=== PATIENT | male | born 1965 | race Caucasian/White ===

== ENCOUNTER 2019-08-04 18:18 | Observation (INO) | payer BC ==
--- NOTE | 2019-08-04 18:37 | PDOC ---
Rapid Medical Evaluation Medical Evaluation: I have performed a brief in-person evaluation of this patient. The patient presents with a chief complaint of: c/o pressure along whole chest x 4 days; denies sob, vomiting, leg swelling, fever, URI sxs; father and brother had [place]; has hx of HTN, hypothyroid, HLD Pertinent physical exam findings: In NAD I have ordered the following: labs, ekg, cxr The patient will proceed to the ED for further evaluation. 08/04/19 18:35
[2019-08-04 18:38] VITALS: BMI 34.8
--- NOTE | 2019-08-04 20:24 | PDOC ---
Attending Attestation - Resident Resident Name: BrennenrashmiPerryMarlon - ED Attending Attestation I have performed the following: I have examined & evaluated the patient, The case was reviewed & discussed with the resident, I agree w/resident's findings & plan - HPI HPI: 08/05/19 03:03 see resident hpi - Physicial Exam PE: 08/05/19 03:03 agree with resident exam - Medical Decision Making 08/05/19 03:03 53-year-old male with chest pain and multiple risk factors EKG shows no acute abnormalities Plan for observation to hospitalist service
--- NOTE | 2019-08-04 20:24 | PDOC ---
History of Present Illness - General Chief Complaint: Chest Pain Stated Complaint: CHEST DISCOMFORT Time Seen by Provider: 08/04/19 18:35 - History of Present Illness Initial Comments: The pt is a 53M w/ a history of HTN, HLD, and hypothyroidism who presents for evaluation of chest pain. The pain was a left sided 'pinch' that lasted for seconds, was non-radiating, non-exertional, and not associated with any GARCIA, vision changes, SOB, or sensation changes. The pt has had this happen several times in the past. He reports a family history of father and brother with [place] at 50. Denies fevers/chills, N/V/C/D, dysuria, hematuria, or changes in sensation. 08/04/19 20:33 Past History - Past Medical History Allergies/Adverse Reactions: Allergies Allergy/AdvReac Type Severity Reaction Status Date / Time No Known Allergies Allergy Verified 08/04/19 18:39 Home Medications: Ambulatory Orders Amlodipine Besylate 5 mg PO DAILY 08/04/19 Benazepril HCl 40 mg PO DAILY 08/04/19 Levothyroxine Sodium 137 mg PO DAILY 08/04/19 Simvastatin 20 mg PO DAILY 08/04/19 COPD: No HTN: Yes Hypercholesterolemia: Yes Thyroid Disease: Yes - Psycho Social/Smoking Cessation Hx Smoking History: Former smoker Have you smoked in the past 12 months: No If you are a former smoker, when did you quit?: 9 YEARS AGO Information on smoking cessation initiated: No Hx Alcohol Use: No Drug/Substance Use Hx: No Review of Systems - Review of Systems Able to Perform ROS?: Yes Comments:: GENERAL/CONSTITUTIONAL: No fever or chills. No weakness HEAD, EYES, EARS, NOSE AND THROAT: No change in vision. No change in hearing. No sore throat CARDIOVASCULAR: No shortness of breath RESPIRATORY: Denies cough, hemoptysis GASTROINTESTINAL: No nausea, vomiting, diarrhea or constipation GENITOURINARY: No dysuria, frequency, or change in urination MUSCULOSKELETAL: No joint or muscle swelling or pain. No neck or back pain SKIN: No rash NEUROLOGIC: No headache, vertigo, loss of consciousness, or change in strength/ sensation ENDOCRINE: No increased thirst. No abnormal weight change HEMATOLOGIC/LYMPHATIC: No anemia, easy bleeding, or history of blood clots ALLERGIC/IMMUNOLOGIC: No hives or skin allergy 08/04/19 20:24 Is the patient limited Luxembourgish proficient: No *Physical Exam - Vital Signs Last Vital Signs Temp Pulse Resp BP Pulse Ox 98.8 F 108 H 18 157/98 94 L 08/04/19 18:33 08/04/19 18:33 08/04/19 18:33 08/04/19 18:33 08/04/19 18:33 - Physical Exam GENERAL: Awake, alert, and oriented to person/place/time, in no acute distress HEAD: No signs of trauma, normocephalic, atraumatic EYES: PERRLA, EOMI, sclera anicteric, conjunctiva clear ENT: Hearing grossly normal, nares patent, oropharynx clear without exudates. Moist mucosa LUNGS: No distress, speaks in full sentences, clear to auscultation bilaterally HEART: Regular rate and rhythm, normal S1 and S2, no murmurs appreciated, peripheral pulses normal and equal bilaterally ABDOMEN: Soft, nontender, normoactive bowel sounds. No guarding, no rebound EXTREMITIES: Normal inspection, Normal range of motion, no edema. No clubbing or cyanosis NEUROLOGICAL: Cranial nerves II through XII grossly intact. Normal speech, normal gait, no focal sensorimotor deficits SKIN: Warm, Dry 08/04/19 20:24 Heart Score/ECG Review - History History: Slightly suspicious - Electrocardiogram EKG: Non specific repolarization disturbance - Age Age: 45-65 - Risk Factors Risk Factors Heart Score: Yes Hx Hypercholesterolemia, Yes Hx Hypertension, Yes Smoking History, Yes Positive family hx of cardiac disease, Yes Hx Obesity Based on the list above the patient has:: >/=3 risk factors or Hx atherosclerotic disease - Troponin Troponin: </= normal limit - Score Heart Score - Total: 4 ED Treatment Course - LABORATORY CBC & Chemistry Diagram: 08/04/19 21:15 08/04/19 21:15 Medical Decision Making - Medical Decision Making The pt is a 53M w/ a history of HTN, HLD, and hypothyroidism who presents for evaluation of chest pain. ED Course Labs sent ECG CXR ECG w/ NSR; HR 87; QTc 450, left axis deviation, no ALEX 08/04/19 21:30 Initial trop neg No anemia Lytes unremarkable No OSIEL LFTs wnl 08/04/19 22:08 CXR w/ R pleural effusion, R linear atelectasis, and R non-specific circular hyperdensity, similar findings seen on previous CXR w/o effusion Plan for tele obs for ACS Pt signed out to [facility] 08/05/19 05:48 Discharge - Discharge Information Problems reviewed: Yes Clinical Impression/Diagnosis: ACS (acute coronary syndrome) Chest pain Qualifiers: Chest pain type: unspecified Qualified Code(s): R07.9 - Chest pain, unspecified Condition: Good - Admission Yes - Follow up/Referral - Patient Discharge Instructions - Post Discharge Activity
[2019-08-04 21:25] LABS: BASO % 0.9 % (0-2.0); EOS % 2.4 % (0-4.5); HEMOGLOBIN 14.7 GM/dL (11.7-16.9); LYMPH % 17.5 % (8-40); MCH 27.5 pg (25.7-33.7); MCHC 32.6 g/dl (32.0-35.9); MEAN CELL VOLUME 84.4 fl (80-96); MONO % 10.3 % (3.8-10.2); NEUT % 68.9 % (42.8-82.8); PLATELET COUNT 393 K/MM3 (134-434); RBC 5.32 M/mm3 (4.00-5.60); RDW 13.3 % (11.9-15.9); WHITE BLOOD COUNT 8.5 K/mm3 (4.0-10.0)
[2019-08-04 21:51] LABS: ALBUMIN 3.8 g/dl (3.4-5.0); BILIRUBIN,TOTAL 0.6 mg/dL (0.2-1); BLOOD UREA NITROGEN 11.2 mg/dL (7-18); CALCIUM 9.1 mg/dL (8.5-10.1); CREATININE 0.8 mg/dL (0.55-1.3); POTASSIUM 4.6 mmol/L (3.5-5.1); TOT PROT 7.7 g/dl (6.4-8.2)
[2019-08-04] MEDS ORDERED: LISINOPRIL 20 MG TABLET (FP) PO ONE (22:05)
[2019-08-04] MEDS ORDERED: amLODIPine BESYLATE 5 MG TABLET (FP) PO ONE (22:05)
[2019-08-04] MEDS ORDERED: amLODIPine BESYLATE 5 MG TABLET (FP) ONE (22:22)
[2019-08-04] MEDS ORDERED: LISINOPRIL 20 MG TABLET (FP) ONE ×2 (22:22→22:23)
--- NOTE | 2019-08-04 23:53 | HP ---
Admitting History and Physical - Primary Care Physician PCP: Tesfaye Trevizo - Admission Chief Complaint: Chest Pain History of Present Illness: This is a 53 y/o man with a PMHx of HTN, HLD, Hypothyroidism. Who presents to the ED for chest pain. The patient describes the pain as a left sided "pinch" that lasted for seconds, was non-radiating, non-exertional, and not associated with any GARCIA, vision changes, SOB, or sensation changes. The patient reports this has happened twice over the weekend, lasting a few seconds. The patient denies fever, chills, cough, palpitations, AP, N/V/D, dysuria. The patient reports a familial hx- father and brother with [place] at 50. History Source: Patient Limitations to Obtaining History: No Limitations - Past Medical History Cardiovascular: Yes: HTN, Hyperlipdemia Endocrine: Yes: Hypothyroidism - Past Surgical History Past Surgical History: Yes: None - Smoking History Smoking history: Former smoker Have you smoked in the past 12 months: No If you are a former smoker, when did you quit?: 9 YEARS AGO - Alcohol/Substance Use Hx Alcohol Use: Yes (Occasional) History of Substance Use: reports: None - Social History Usual Living Arrangement: Yes: With Spouse Do you think of yourself as: Straight/Heterosexual ADL: Independent History of Recent Travel: No Home Medications - Allergies Allergies/Adverse Reactions: Allergies Allergy/AdvReac Type Severity Reaction Status Date / Time No Known Allergies Allergy Verified 08/04/19 18:39 - Home Medications Home Medications: Ambulatory Orders Amlodipine Besylate 5 mg PO DAILY 08/04/19 Benazepril HCl 40 mg PO DAILY 08/04/19 Levothyroxine Sodium 137 mg PO DAILY 08/04/19 Simvastatin 20 mg PO DAILY 08/04/19 Family Medical History Family Hx Cardiac Disorders: Father, Brother Family Hx Nuerologic Problems: Mother (Stroke) Review of Systems - Review of Systems Constitutional: reports: No Symptoms Eyes: reports: No Symptoms HENT: reports: No Symptoms Neck: reports: No Symptoms Cardiovascular: reports: Chest Pain Respiratory: reports: No Symptoms Gastrointestinal: reports: No Symptoms Genitourinary: reports: No Symptoms Breasts: reports: No Symptoms Reported Musculoskeletal: reports: No Symptoms Integumentary: reports: No Symptoms Neurological: reports: No Symptoms Endocrine: reports: No Symptoms Hematology/Lymphatic: reports: No Symptoms Psychiatric: reports: No Symptoms Pain Intensity: 7 Physical Examination Vital Signs: Vital Signs Temperature 98.8 F 08/04/19 18:33 Pulse Rate 85 08/04/19 21:42 Respiratory Rate 19 08/04/19 21:42 Blood Pressure 130/93 08/04/19 21:42 O2 Sat by Pulse Oximetry (%) 99 08/04/19 22:59 Constitutional: Yes: Well Nourished, No Distress, Calm, Obese Eyes: Yes: WNL, Conjunctiva Clear, EOM Intact, PERRL HENT: Yes: WNL, Atraumatic, Normocephalic Neck: Yes: WNL, Supple, Trachea Midline Cardiovascular: Yes: WNL, Regular Rate and Rhythm, S1, S2 Respiratory: Yes: WNL, Regular, CTA Bilaterally Gastrointestinal: Yes: WNL, Normal Bowel Sounds, Soft, Abdomen, Obese ...Rectal Exam: Yes: Deferred Renal/: Yes: WNL Breast(s): Yes: WNL Musculoskeletal: Yes: WNL Extremities: Yes: WNL Edema: No Peripheral Pulses WNL: Yes Integumentary: Yes: WNL Neurological: Yes: WNL, Alert, Oriented ...Motor Strength: WNL Psychiatric: Yes: WNL, Alert, Oriented Labs: CBC, BMP 08/04/19 21:15 08/04/19 21:15 Laboratory Results - last 24 hr 08/04/19 08/04/19 08/04/19 21:15 21:15 21:15 WBC 8.5 RBC 5.32 Hgb 14.7 Hct 45.0 MCV 84.4 MCH 27.5 MCHC 32.6 RDW 13.3 Plt Count 393 D MPV 7.0 L D Absolute Neuts (auto) 5.9 Neutrophils % 68.9 Lymphocytes % 17.5 D Monocytes % 10.3 H Eosinophils % 2.4 Basophils % 0.9 Nucleated RBC % 0 Sodium 138 Potassium 4.6 Chloride 104 Carbon Dioxide 29 Anion Gap 5 L BUN 11.2 Creatinine 0.8 Est GFR (CKD-EPI)AfAm 119.04 Est GFR (CKD-EPI)NonAf 102.71 Random Glucose 89 Calcium 9.1 Total Bilirubin 0.6 AST 25 ALT 45 Alkaline Phosphatase 74 Troponin I < 0.02 Total Protein 7.7 Albumin 3.8 Intake & Output 08/02/19 08/03/19 08/04/19 08/05/19 23:59 23:59 23:59 23:59 Weight 113.398 kg Current Medications Generic Name Dose Route Start Last Admin Trade Name Freq PRN Reason Stop Dose Admin Amlodipine Besylate 5 mg 08/05/19 10:00 Norvasc - PO DAILY [facility] Non-Formulary Medication 40 mg 08/05/19 10:00 Benazepril Hcl [Benazepril Hcl] PO DAILY [facility] Non-Formulary Medication 137 mg 08/05/19 07:00 Levothyroxine Sodium [Levothyroxine Sodium] PO DAILY@0700 [facility] Non-Formulary Medication 20 mg 08/05/19 10:00 Simvastatin [Simvastatin] PO DAILY [facility] Imaging - Results Chest X-ray: Image Reviewed EKG: Image Reviewed Problem List - Problems (1) Chest pain Assessment/Plan: r/o ACS Cardiac monitoring Serial enzymes Appreciate Cardiology consult Patient reports having Echo < 6 months ago, will need to obtain report- defer to Cardiology Asa Code(s): R07.9 - CHEST PAIN, UNSPECIFIED Qualifiers: Chest pain type: unspecified Qualified Code(s): R07.9 - Chest pain, unspecified (2) HTN (hypertension) Assessment/Plan: stable Monitor BP Continue home med Monitor renal function Code(s): I10 - ESSENTIAL (PRIMARY) HYPERTENSION (3) HLD (hyperlipidemia) Assessment/Plan: stable Continue Lipitor Monitor LFTs Code(s): E78.5 - HYPERLIPIDEMIA, UNSPECIFIED (4) Hypothyroidism Assessment/Plan: stable Continue Levothyroid Code(s): E03.9 - HYPOTHYROIDISM, UNSPECIFIED Assessment/Plan This is a 53 y/o man with a PMHx of HTN, HLD, Hypothyroidism. Placed in Telemetry Observation for Chest Pain r/o ACS for further evaluation of their emergent condition. Plan: See Problem List FEN PO fluids as tolerated Replete lytes prn Low Na Diet DVT ppx OOB SCDs Consider AC if LOS > 48 hrs Dispo: Observation Visit type - Emergency Visit Emergency Visit: Yes ED Registration Date: 08/04/19 Care time: The patient presented to the Emergency Department on the above date and was hospitalized for further evaluation of their emergent condition. - New Patient This patient is new to me today: Yes Date on this admission: 08/04/19 - Critical Care Critical Care patient: No
[2019-08-05 06:11] LABS: BASO % 0.7 % (0-2.0); EOS % 3.8 % (0-4.5); HEMATOCRIT 42.8 % (35.4-49); HEMOGLOBIN 14.2 GM/dL (11.7-16.9); LYMPH % 16.7 % (8-40); MCH 27.9 pg (25.7-33.7); MCHC 33.2 g/dl (32.0-35.9); MEAN CELL VOLUME 83.9 fl (80-96); MEAN PLT VOLUME 7.1 fl (7.5-11.1); MONO % 12.8 % (3.8-10.2); PLATELET COUNT 361 K/MM3 (134-434); RDW 13.1 % (11.9-15.9); WHITE BLOOD COUNT 6.8 K/mm3 (4.0-10.0)
[2019-08-05 06:39] LABS: ANION GAP 6 MMOL/L (8-16); BLOOD UREA NITROGEN 10.1 mg/dL (7-18); CHLORIDE 104 mmol/L (98-107); CO2 28 mmol/L (21-32); CREATININE 0.8 mg/dL (0.55-1.3); GLUCOSE,RANDOM 102 mg/dL (74-106); MAGNESIUM 2.3 mg/dL (1.8-2.4); PHOSPHOROUS 4.2 mg/dL (2.5-4.9); POTASSIUM 4.3 mmol/L (3.5-5.1); SODIUM 139 mmol/L (136-145)
[2019-08-05] MEDS ORDERED: LEVOTHYROXINE 112 MCG, LEVOTHYROXINE 25 MCG PO SCH (07:00)
--- NOTE | 2019-08-05 09:29 | EKG ---
Test Reason : Blood Pressure : / mmHG Vent. Rate : 087 BPM Atrial Rate : 087 BPM P-R Int : 148 ms QRS Dur : 096 ms QT Int : 374 ms P-R-T Axes : 024 -44 020 degrees QTc Int : 450 ms NORMAL SINUS RHYTHM LEFT AXIS DEVIATION JUNCTIONAL ST DEPRESSION, PROBABLY NORMAL ABNORMAL ECG WHEN COMPARED WITH ECG OF 12-JUN-2010 09:36, NO SIGNIFICANT CHANGE WAS FOUND Confirmed by Chivo Arguello MD ([id number]) on 08/05/2019 9:29:17 AM Referred By: Confirmed By:Chivo Arguello MD
[2019-08-05] MEDS ORDERED: amLODIPine BESYLATE 5 MG TABLET (FP) PO SCH (10:00)
[2019-08-05] MEDS ORDERED: ASPIRIN 81 MG CHEWABLE TABLETS PO SCH (10:00)
[2019-08-05] MEDS ORDERED: LISINOPRIL 20 MG TABLET (FP) PO SCH (10:00)
--- NOTE | 2019-08-05 10:43 | CON.CARD ---
Consult Consult Specialty:: Cardiology Referred by:: Dr. Trevizo Reason for Consultation:: Chest pain - History of Present Illness Chief Complaint: chest pain History of Present Illness: 53 year old man with a pmh HTN, HLD, hypothyroid, family history of multiple family members including father and brother with KS's in their 50s admitted with episodes of chest pain and uncontrolled HTN. pt seen and examined in the ER in nad. no current chest pain. pt states that 5 days ago while driving home from work he noticed a pinching sensation in his chest that lasted 1 second at a time and occurred on and off. over the weekend he noticed his BP was uncontrolled in 150s/100s but no further chest pain. yesterday while driving home from work he again felt pinching chest discomfort same as previous. no further chest pain since coming to the ER. no sob. no palpitations, pnd, orthopnea, or LE edema. states that he had a stress test approx 1.[address] Osuna in Dr. Trevizo's office that was normal. States that he had an echo approx [address] Trevizo's office that was normal. - History Source History Provided By: Patient, Medical Record Limitations to Obtaining History: No Limitations - Past Medical History Cardio/Vascular: Yes: HTN, Hyperlipdemia Endocrine: Yes: Hypothyroidism - Past Surgical History Past Surgical History: Yes: None - Alcohol/Substance Use Hx Alcohol Use: Yes (Occasional) History of Substance Use: reports: None - Smoking History Smoking history: Former smoker Have you smoked in the past 12 months: No If you are a former smoker, when did you quit?: 9 YEARS AGO - Social History ADL: Independent History of Recent Travel: No Home Medications - Allergies Allergies/Adverse Reactions: Allergies Allergy/AdvReac Type Severity Reaction Status Date / Time No Known Allergies Allergy Verified 08/04/19 18:39 - Home Medications Home Medications: Ambulatory Orders Amlodipine Besylate 5 mg PO DAILY 08/04/19 Benazepril HCl 40 mg PO DAILY 08/04/19 Levothyroxine Sodium 137 mg PO DAILY 08/04/19 Simvastatin 20 mg PO DAILY 08/04/19 Family Medical History Family Hx Cardiac Disorders: Father, Brother Review of Systems - Review of Systems Constitutional: denies: No Symptoms, Chills, Diaphoresis, Fever, Lethargy, Loss of Appetite, Malaise, Night Sweats, Unintentional Wgt. Loss, Weakness, Other Eyes: denies: No Symptoms, Blind Spots, Blurred Vision, Double Vision, Eye Pain , Floaters, Photophobia, Recent Change in Vision, Other HENT: denies: No Symptoms, Difficult Swallowing, Ear Discharge, Ear Pain, Epistaxis, Gingival Bleeding, Hearing Loss, Mouth Swelling, Nasal Congestion, Ocular Prosthesis, Throat Pain, Toothache, Ringing in Ears, Other Neck: denies: No Symptoms, Decreased ROM, Lumps, Pain on Movement, Stiffness, Swollen Glands, Tenderness, Other Cardiovascular: reports: Chest Pain. denies: No Symptoms, Edema, Palpitations, Shortness of Breath, Other Respiratory: denies: No Symptoms, Cough, Exercise Intolerance, Hemoptysis, Orthopnea, PND, Snoring, SOB, SOB on Exertion, Wheezing, Other Gastrointestinal: denies: No Symptoms, Abdominal Pain, Bloating, Constipation, Diarrhea, Dysphagia, Indigestion, Melena, Nausea, Rectal Bleeding, Vomiting, Vomiting Blood, Other Genitourinary: denies: No Symptoms, Burning, Discharge, Dysuria, Flank Pain, Frequency, Hematuria, Incontinence, Lesions, Menses, Pain, Testicular Mass, Testicular Pain, Testicular Swelling, Urgency, Vaginal Bleeding, Other Breasts: denies: No Symptoms Reported, See HPI, Breast Implants, Discharge from Nipple, Lumps, Pain, Skin Changes, Other Musculoskeletal: denies: No Symptoms, Back Pain, Crepitus, Decreased ROM, Extremity Pain, Joint Pain, Joint Swelling, Muscle Pain, Muscle Cramps, Muscle Weakness, Other Integumentary: denies: No Symptoms, Blister, Bruising, Change in Color, Eczema, Erythema, Incision, Lesions, Lump, Pallor, Pruritis, Rash, Wound, Other Neurological: denies: No Symptoms, Change in LOC, Change in Speech, Confusion, Dizziness, Headache, Incoordination, Numbness, Parasthesia, Pre-Existing Deficit , Seizure, Syncope, Tremors, Unsteady Gait, Weakness, Other Endocrine: denies: No Symptoms, Excessive Sweating, Flushing, Increased Hunger, Increased Thirst, Intolerance to Cold, Intolerance to Heat, Unexplained Weight Gain, Unexplained Weight Loss, Other Hematology/Lymphatic: denies: No Symptoms, Easily Bruised, Excessive Bleeding, Swollen Glands, Other Psychiatric: denies: No Symptoms, Altered Sleep Pattern, Anxiety, Depression, Hallucinations, Panic, Paranoia, Suicidal, Other - Risk Factors Known Risk Factors: Yes: Family History, Hypercholesterolemia, Hypertension Vital Signs: Vital Signs Temperature 98.3 F 08/05/19 06:00 Pulse Rate 73 08/05/19 06:00 Respiratory Rate 16 08/05/19 06:00 Blood Pressure 110/71 08/05/19 06:00 O2 Sat by Pulse Oximetry (%) 95 08/05/19 06:00 Constitutional: Yes: Well Nourished, No Distress, Calm Eyes: Yes: Conjunctiva Clear, EOM Intact HENT: Yes: Atraumatic, Normocephalic Neck: Yes: Supple, Trachea Midline Respiratory: Yes: Regular, CTA Bilaterally. No: Rales, Rhonchi, SOB, Wheezes Gastrointestinal: Yes: Normal Bowel Sounds, Soft. No: Distention, Tenderness Cardiovascular: Yes: Regular Rate and Rhythm. No: Bradycardia, Tachycardia, Pulse Irregular, Gallop, Rub, Varicosities JVD: No Carotid Bruit: No PMI: Non-Displaced Heart Sounds: Yes: S1, S2. No: Split S2, S3, S4, Clicks, Gallop, Rub, Bruit Murmur: Yes: Grade 1, Grade 2. No: Systolic Murmur, Diastolic Murmur, Grade 3, Grade 4, Grade 5, Grade 6 Extremities: Yes: WNL Edema: No Peripheral Pulses WNL: Yes Peripheral Pulses: 2+ Left Doralis Pedis, 2+ Right Dorsalis Pedis Neurological: Yes: Alert, Oriented Psychiatric: Yes: Alert, Oriented - Other Data Labs, Other Data: CBC, BMP 08/05/19 05:35 08/05/19 05:35 Troponin, BNP 08/04/19 08/05/19 21:15 05:35 Troponin I < 0.02 < 0.02 Troponin, BNP 08/04/19 08/05/19 21:15 05:35 Troponin I < 0.02 < 0.02 nsr 87bpm, lad, nsst Imaging - Results Chest X-ray: Report Reviewed, Image Reviewed EKG: Report Reviewed, Image Reviewed Other: Report Reviewed, Image Reviewed Assessment/Plan 53 year old man with a pmh HTN, HLD, hypothyroid, family history of multiple family members including father and brother with KS's in their 50s admitted with episodes of chest pain and uncontrolled HTN. pt seen and examined in the ER in nad. no current chest pain. pt states that 5 days ago while driving home from work he noticed a pinching sensation in his chest that lasted 1 second at a time and occurred on and off. over the weekend he noticed his BP was uncontrolled in 150s/100s but no further chest pain. yesterday while driving home from work he again felt pinching chest discomfort same as previous. no further chest pain since coming to the ER. no sob. no palpitations, pnd, orthopnea, or LE edema. states that he had a stress test approx 1.[address] Osuna in Dr. Trevizo's office that was normal. States that he had an echo approx [address] Trevizo's office that was normal. chest pain-atypical -not c/w ACS -no ischemia on ekg -cardiac enzymes wnl -reports normal stress test 1.5 years ago but no symptoms at that time -plan for stress test today to evaluate for ischemia -repeat echo to evaluate for LV dysfunction -if no ischemia on stress test and echo wnl pt would be acceptable for discharge home from a cardiac standpoint HTN-reports elevated readings at home -bp well controlled currently -cont current medical regimen -outpatient fup
--- NOTE | 2019-08-05 11:22 | PN ---
Progress Note, Physician Chief Complaint: Chest discomfort History of Present Illness: NAD denies any chest pain EKG unremarkable Trops x 2 negative Sitting in the hallway Awaiting Echo + Stress test Can be discharged if above negative - Current Medication List Current Medications: Active Medications Amlodipine Besylate (Norvasc -) 5 mg PO DAILY [facility] Last Admin: 08/05/19 10:17 Dose: 5 mg Aspirin (Asa -) 81 mg PO DAILY [facility] Atorvastatin Calcium (Lipitor -) 10 mg PO HS [facility] Levothyroxine Sodium 112 mcg/ (Levothyroxine Sodium 25 mcg) 137 mcg PO DAILY@ 0700 [facility] Last Admin: 08/05/19 08:00 Dose: Not Given Lisinopril (Prinivil) 40 mg PO DAILY [facility] Last Admin: 08/05/19 10:18 Dose: 40 mg - Objective Vital Signs: Vital Signs Temperature 98.3 F 08/05/19 06:00 Pulse Rate 73 08/05/19 06:00 Respiratory Rate 16 08/05/19 06:00 Blood Pressure 110/71 08/05/19 06:00 O2 Sat by Pulse Oximetry (%) 95 08/05/19 06:00 Constitutional: Yes: Well Nourished, No Distress, Calm, Obese Cardiovascular: Yes: Regular Rate and Rhythm Respiratory: Yes: Regular Gastrointestinal: Yes: WNL Genitourinary: Yes: WNL Musculoskeletal: Yes: WNL Extremities: Yes: WNL Edema: No Peripheral Pulses WNL: Yes Neurological: Yes: Alert, Oriented Psychiatric: Yes: Alert, Oriented Labs: CBC, BMP 08/05/19 05:35 08/05/19 05:35 Problem List - Problems (1) Chest pain Assessment/Plan: -Cardiology consult appreciated -Awaiting Echo + stress test -If normal, will d/c home with o/p f/u Problems reviewed: Yes Code(s): R07.9 - CHEST PAIN, UNSPECIFIED Qualifiers: Chest pain type: unspecified Qualified Code(s): R07.9 - Chest pain, unspecified Assessment/Plan see problem list
--- NOTE | 2019-08-05 13:40 | ECHO ---
Version: 1 Name: SALLY FARFAN Exam: Adult Echocardiogram Study Date: 08/05/2019, 10:20 AM Age: 53 Years MMode/2D Measurements & Calculations IVSd: 1.05 cm LVIDs: 3.3 cm LVIDd: 5.0 cm LVPWd: 1.30 cm LVOT diam: 1.90 cm Ao root diam: 3.8 cm LA dimension: 3.5 cm Doppler Measurements & Calculations MV E max madhu: 69.1 cm/sec Med E/e': 11.7 MV A max madhu: 67.1 cm/sec Med Peak E' Madhu: 5.9 cm/sec MV E/A: 1.03 Lat E/e': 8.3 Lat Peak E' Madhu: 8.3 cm/sec Ao max P.6 mmHg Ao V2 max: 137.3 cm/sec Left Ventricle The left ventricular size, thickness and function are normal. Ejection Fraction = 65%. The transmitr al spectral Doppler flow pattern is suggestive of impaired LV relaxation. Right Ventricle The right ventricle is normal in size and function. Atria Normal left and right atrial size and function. Mitral Valve There is mild mitral annular calcification. There is trace mitral regurgitation. Tricuspid Valve The tricuspid valve is normal in structure and function. No tricuspid regurgitation. There was insuf ficient TR detected to calculate RV systolic pressure. Aortic Valve The aortic valve is normal in structure and function. Pulmonic Valve The pulmonic valve is not well seen, but is grossly normal. Great Vessels The aortic root is normal size. Pericardium/Pleura There is no pericardial effusion. Summary Statements This was essentially a normal study. 08/05/2019, 1:40 MD Lashaun العلي PM Ordering Physician: Apollo Washington Referring Physician: APOLLO WASHINGTON Performed By: Carmenza Wright
--- NOTE | 2019-08-05 14:41 | CON.CARD ---
Cardiology Consult (text) - Consultation Consultation Note: Stress results were reviewed. Patient exercised 9 min without chest pain or ischemia. There was mild interolateral ischemia. Medical vs invasive management was discussed extensively with the patient. Given the atypical nature of his chest pain, good exercise capacity without high risk features and size and severity of ischemia, medical management is reasonable. The patient may pursue further cardiac imaging as an out patient. Rec: Add Toprol XL 50mg QD Switch to Moderate intensity statin either Lipitor 20mg or zocor 40mg qd Out patient cardiology evaluation in 2-4 weeks post discharge. We can arrange for CT coronary angiogram or cardiac cath at that time if still symptomatic. If further chest pain, the patient was instructed to return to the hospital.
[2019-08-05 16:08] VITALS: BP 130/80; PULSE 95; TEMP 98.4
[2019-08-05] MEDS ORDERED: ATORVASTATIN CA 10 MG TABLET (FP) PO SCH (22:00)
--- NOTE | 2019-08-08 13:58 | EKG ---
Test Reason : Blood Pressure : / mmHG Vent. Rate : 097 BPM Atrial Rate : 388 BPM P-R Int : 000 ms QRS Dur : 098 ms QT Int : 364 ms P-R-T Axes : 036 -50 019 degrees QTc Int : 462 ms NORMAL SINUS RHYTHM LEFT ANTERIOR FASCICULAR BLOCK NONSPECIFIC ST ABNORMALITY ABNORMAL ECG Confirmed by ALONZO VITALE MD ([id number]) on 08/08/2019 1:58:10 PM Referred By: Confirmed By:ALONZO VITALE MD
== END 2019-08-05 19:24 | disposition home or self-care (01) ==
LOC: JER 18:18 → JERBED 22:07
PROVIDERS: ADMIT Internal Medicine; ATTEND Family Medicine
DX: R07.89 Other chest pain (principal); I10 Essential (primary) hypertension; E78.5 Hyperlipidemia, unspecified; E03.9 Hypothyroidism, unspecified; Z87.891 Personal history of nicotine dependence; Z82.49 Family history of ischemic heart disease and other diseases of the circulatory system
CPT/HCPCS: 36415; 71046-TC-FY; 78452-TC; 80048; 80053; 83735; 84100; 84484; 85025; 93005; 93010; 93017; 93306-TC; 99285-25; A9502; G0378